=== PATIENT | male | born 1960 | race American Indian/Alaskan Native ===

== ENCOUNTER 2016-10-05 10:12 | Emergency (ER) | payer MEDICARE, MEDICAID ==
[2016-10-05 10:43] VITALS: BMI 57.6
[2016-10-05 11:10] VITALS: TEMP 98.2
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
[2016-10-05 12:31] VITALS: BP 158/76; PULSE 62; RESP 19; O2SAT 98
== END 2016-10-05 12:39 | disposition home or self-care (01) ==
LOC: ED 10:12
DX: Z00.8 Encounter for other general examination (principal)

== ENCOUNTER 2017-09-02 07:31 | Day surgery (SDC) | payer MEDICARE, MEDICAID ==
[2017-09-01 08:42] VITALS: BMI 53.8
[2017-09-02 07:00] LABS: BASO # 0.01 K/mm3 (0.0-2.0); BASO % 0.2 % (0.0-3.0); EOS # 0.2 (0.0-0.7); EOS % 2.9 % (1.5-5.0); GRAN # 2.6 (1.4-6.5); GRAN % 49.4 % (50.0-68.0); HEMOGLOBIN 11.8 g/dL (14.0-18.0); LYMPH % 38.8 % (22.0-35.0); MEAN CELL VOLUME 83.5 fl (80.0-105.0); MEAN CORPUSCULAR HEMOGLOBIN 26.6 pg (25.0-35.0); MEAN CORPUSCULAR HGB CONC 31.9 g/dl (31.0-37.0); MONO # 0.5 (0.1-0.6); MONO % 8.7 % (1.0-6.0); RBC 4.43 10^6/uL (3.5-6.1); RED CELL DISTRIBUTION WIDTH 13.7 % (11.5-14.5); WHITE BLOOD COUNT 5.3 10^3/ul (4.5-11.0)
[2017-09-02 07:10] LABS: CALCIUM 10.3 mg/dL (8.4-10.5)
[2017-09-02 07:22] LABS: INR 1.03 (0.93-1.08); PARTIAL THROMBOPLASTIN TIME 29.5 Seconds (25.1-36.5); PROTHROMBIN TIME 11.9 SECONDS (9.4-12.5)
[2017-09-02 09:06] VITALS: O2SAT 100
[2017-09-02] MEDS ORDERED: Verapamil 0 ML ONE (10:21)
[2017-09-02] MEDS ORDERED: Phenylephrine 10 mg/ml Inj ONE (10:22)
[2017-09-02] MEDS ORDERED: Midazolam 2 MG/2 ML VIAL ONE ×2 (10:22→10:33)
[2017-09-02] MEDS ORDERED: Iohexol 350mgl/ml 50 ML ONE (10:23)
[2017-09-02] MEDS ORDERED: Iodixanol 320 MG/ML 200 ML BOTTLE IV ONE (10:23)
[2017-09-02] MEDS ORDERED: Nitroglycerin 50mg in D5W 0 MG/0 ML BOTTLE IV ONE (10:23)
[2017-09-02] MEDS ORDERED: HEPARIN SODIUM/NS 2,000 ML IV ONE (10:23)
[2017-09-02] MEDS ORDERED: Iodixanol 320 MG/ML 100 ML BOTTLE IV ONE (10:23)
[2017-09-02] MEDS ORDERED: Lidocaine 2% Inj (20ml) ONE (10:24)
[2017-09-02] MEDS ORDERED: DiphenhydrAMINE 50 mg/ml Inj ONE (10:35)
[2017-09-02] MEDS ORDERED: Sodium Chloride 0.9% 1,000 ML IV SCH (11:15)
[2017-09-02 12:58] VITALS: TEMP 97.4
[2017-09-02 15:11] VITALS: BP 156/72; PULSE 52; RESP 16
--- NOTE | 2017-09-02 19:01 | CARD ---
APPROVED REPORT EKG Measurement Heart [id number] <Conclusion> Sinus Bradycardia Low voltage QRS Abnormal ECG
--- NOTE | 2017-09-02 22:22 | CARDCATH ---
PROCEDURE DATE: 09/02/2017 INDICATIONS: Mr. Gimenez is a very pleasant 56-year-old male with history of CVA, CAD, stenting last year who was having recurrent episodes of chest pain. Because of his limitations, patient could not undergo nuclear stress test and underwent a diagnostic cardiac cath at [facility], which showed RCA and LAD in-stent restenosis. He was brought for intervention of the RCA stenosis. PROCEDURES PERFORMED: Diagnostic coronary angiogram, right coronary artery with PTCA and stenting of mid RCA with deployment of 3.5 x 26-mm Resolute drug-eluting stent, post dilatation with a 4.5 noncompliant balloon, regeneration down to 0% with ALONDRA-3 flow in the right artery. Angio-Seal closure device for hemostasis. IMPRESSION: Successful percutaneous transluminal coronary angioplasty and stenting of mid right coronary artery, 75% in-stent restenosis, intravascular ultrasound-guided percutaneous coronary intervention deployment of 3.5 x 26 Resolute drug-eluting stent, post dilatation with a 4.5 noncompliant balloon. RECOMMENDATION: Patient is to be kept on dual-antiplatelet therapy for 1 year, guideline directed therapy for CAD, staged intervention of the LAD in 4 to 6 weeks' time. Chaparro Castillo MD
== END 2017-09-02 16:22 ==
LOC: SDSVAS 07:31 → 2RNO 11:31 → SDSVAS 16:22
PROVIDERS: ATTEND Internal Medicine Interventional Cardiology
DX: I25.10 Atherosclerotic heart disease of native coronary artery without angina pectoris (principal); T82.855A Stenosis of coronary artery stent, initial encounter; Y83.1 Surgical operation with implant of artificial internal device as the cause of abnormal reaction of the patient, or of later complication, without mention of misadventure at the time of the procedure; Z86.73 Personal history of transient ischemic attack (TIA), and cerebral infarction without residual deficits
CPT/HCPCS: 36415; 80048; 85025; 85175; 85610; 85730; 86850; 86900; 92978; 93005; 99152; 99153; C1725 ×2; C1753; C1760; C1769 ×2; C1874; C1887; C2629; C9600; J1200; J1644 ×2; J2250; J3010; J7040 ×2; Q9967

== ENCOUNTER 2017-10-18 08:49 | Day surgery (SDC) | payer MEDICARE, MEDICAID ==
[2017-09-01 08:42] VITALS: BMI 53.8
[2017-10-18 09:29] VITALS: O2SAT 98
[2017-10-18 10:43] LABS: BASO # 0.01 K/mm3 (0.0-2.0); BASO % 0.2 % (0.0-3.0); EOS # 0.1 (0.0-0.7); EOS % 2.5 % (1.5-5.0); GRAN # 2.74 (1.4-6.5); HEMOGLOBIN 12.2 g/dL (14.0-18.0); LYMPH # 1.9 (1.2-3.4); MEAN CORPUSCULAR HEMOGLOBIN 26.5 pg (25.0-35.0); MEAN CORPUSCULAR HGB CONC 32.4 g/dl (31.0-37.0); MEAN PLATELET VOLUME 10.6 fl (7.0-11.0); MONO # 0.4 (0.1-0.6); MONO % 8.3 % (1.0-6.0); RBC 4.6 10^6/uL (3.5-6.1); RED CELL DISTRIBUTION WIDTH 13.7 % (11.5-14.5); WHITE BLOOD COUNT 5.2 10^3/ul (4.5-11.0)
[2017-10-18 10:55] LABS: CALCIUM 9.8 mg/dL (8.4-10.5)
[2017-10-18 11:00] LABS: INR 1.03 (0.93-1.08); PARTIAL THROMBOPLASTIN TIME 25.9 Seconds (25.1-36.5); PROTHROMBIN TIME 11.9 SECONDS (9.4-12.5)
[2017-10-18] MEDS ORDERED: Lidocaine 2% Inj (20ml) ONE (12:54)
[2017-10-18] MEDS ORDERED: Nitroglycerin 50mg in D5W 50 MG/250 ML BOTTLE IV ONE (12:55)
[2017-10-18] MEDS ORDERED: Iodixanol 320 mg/ml 150 ml Bottle IV ONE (12:55)
[2017-10-18] MEDS ORDERED: Iohexol 350mgl/ml 50 ML ONE (12:55)
[2017-10-18] MEDS ORDERED: Midazolam 2 MG/2 ML VIAL ONE ×2 (14:32→14:57)
[2017-10-18] MEDS ORDERED: Verapamil 2 ML ONE (14:40)
[2017-10-18] MEDS ORDERED: DiphenhydrAMINE 50 mg/ml Inj ONE (15:01)
[2017-10-18] MEDS ORDERED: Iodixanol 320 MG/ML 100 ML BOTTLE IV ONE (15:06)
[2017-10-18] MEDS ORDERED: Morphine 4 mg/ml ISec ONE (15:16)
[2017-10-18] MEDS ORDERED: Bacitracin 500 Units/gm Oint Foilpak UD TOP ONE (15:30)
[2017-10-18 17:27] VITALS: TEMP 98.4
[2017-10-18 20:45] VITALS: RESP 19
[2017-10-18 20:46] VITALS: BP 138/76
[2017-10-18] MEDS ORDERED: Bacitracin 500 Units/gm Oint Foilpak UD ONE (22:03)
[2017-10-18 23:44] VITALS: PULSE 76
--- NOTE | 2017-10-19 08:42 | CARDCATH ---
PROCEDURE DATE: 10/18/2017 INDICATIONS: Mr. David Gimenez is a 57-year-old male who has been followed by me in the office for symptoms of unstable angina, dyspnea on exertion and at rest, was brought for the stage intervention of the LAD. PROCEDURE PERFORMED. Stage percutaneous coronary intervention of proximal left anterior descending artery with deployment of 4.0 x 15 mm [place] drug-eluting stent, lesion reduction from 80% down to 0% ALONDRA-3 flow, 6-[place] left radial artery access and wrist band for hemostasis. TECHNICAL PROCEDURE: After obtaining informed consent, patient was brought to the cardiac catheterization in post-absorptive and non-sedated state. The patient was prepped and draped in the usual sterile fashion. A 2% lidocaine was used for infiltration of anesthesia. Using modified Seldinger technique, a 6-[place] sheath was introduced into the left distal radial artery subsequently over exchange length J-wire, 3.5 guiding catheter, used to engage the left coronary systems and angiograms were obtained in different orthogonal views. CORONARY ANATOMY: Left main large-sized vessel bifurcates into left anterior descending and left circumflex coronary artery. LAD has proximal 80% stenosis widely patent. TECHNIQUES OF INTERVENTION: After reviewing the above angiographic findings, it was decided to fix the proximal LAD lesion. [place] wire was negotiated through the obstruction into the distal LAD. Subsequently, the lesion was pre-dilated with 3.0 x 10 mm balloon and subsequently stented with 4.0 x 15 mm balloon to 16 atmospheric pressure. Final angiogram done show lesion reduction to 0% ALONDRA-3 flow. IMPRESSION: Successful percutaneous transluminal coronary angioplasty and stenting of proximal left anterior descending, 80% stenosis, deployment of 4.0 x 15 mm [place] drug-eluting stent,. RECOMMENDATIONS: Patient can be discharged home in 3 hours. Give the patient dual antiplatelet therapy. Follow up with Dr. Castillo office in one week. Chaparro Castillo MD
== END 2017-10-19 00:32 ==
LOC: CATH 08:49 → 2RNO 15:45 → CATH 10-19 00:32
PROVIDERS: ATTEND Internal Medicine Interventional Cardiology
DX: I25.110 Atherosclerotic heart disease of native coronary artery with unstable angina pectoris (principal)
CPT/HCPCS: 36415; 80048; 80061; 82948; 85025; 85175; 85610; 85730; 86850; 86900; 99152; 99153; C1725; C1769 ×2; C1874; C1887; C9600; J1200; J1644 ×2; J2250; J2270; J3010; J7040; Q9967 ×2

== ENCOUNTER 2018-04-20 11:59 | Inpatient (IN) | payer MEDICARE, MEDICAID ==
[2018-04-20 12:11] VITALS: BMI 56.0
--- NOTE | 2018-04-20 12:55 | RAD ---
Date of service: 04/20/2018 HISTORY: chest pain COMPARISON: 06/19/2016 FINDINGS: LUNGS: No active pulmonary disease. PLEURA: No significant pleural effusion identified, no pneumothorax apparent. CARDIOVASCULAR: Mild cardiomegaly OSSEOUS STRUCTURES: No significant abnormalities. VISUALIZED UPPER ABDOMEN: Normal. OTHER FINDINGS: None. IMPRESSION: No active disease.
[2018-04-20 13:14] LABS: BASO # 0.01 K/mm3 (0.0-2.0); BASO % 0.2 % (0.0-3.0); EOS # 0.2 (0.0-0.7); EOS % 3.2 % (1.5-5.0); GRAN # 3.6 (1.4-6.5); GRAN % 59.6 % (50.0-68.0); HEMOGLOBIN 12.2 g/dL (14.0-18.0); LYMPH # 1.6 (1.2-3.4); LYMPH % 25.7 % (22.0-35.0); MEAN CELL VOLUME 79.5 fl (80.0-105.0); MEAN CORPUSCULAR HEMOGLOBIN 25.6 pg (25.0-35.0); MEAN CORPUSCULAR HGB CONC 32.2 g/dl (31.0-37.0); MEAN PLATELET VOLUME 10.2 fl (7.0-11.0); MONO # 0.7 (0.1-0.6); MONO % 11.3 % (1.0-6.0); RBC 4.77 10^6/uL (3.5-6.1); RED CELL DISTRIBUTION WIDTH 14.9 % (11.5-14.5)
--- NOTE | 2018-04-20 13:31 | ED PDOC ---
Arrival/HPI - General Historian: Patient - History of Present Illness Narrative History of Present Illness (Text): 04/20/18 13:27 57yo male morbidly obese male with pmhx of hypertension, Diabetes, CVA (2007), CAD s/p 2stents bib EMS form [facility] for complaint of retrostenal constant chest pain since last night. States headache started this morning. Describes chest pain as sharp, intermittent and radiates to his left arm. Did not take any medication. Denies SOB, diaphoresis, cough, fever, chills, nausea, vomiting, sharp/ripping tearing upper back pain, LE edema, calf pain, any other complaint. <Wilbur Campbell - Last Filed: 04/20/18 18:10> <Eben Guy - Last Filed: 04/25/18 18:43> - General Chief Complaint: Chest Pain Time Seen by Provider: 04/20/18 12:09 Past Medical History - Provider Review Nursing Documentation Reviewed: Yes - Infectious Disease Hx of Infectious Diseases: None - Cardiac Hx Pacemaker: No - Pulmonary Hx Respiratory Disorders: No Hx Tuberculosis: No - Neurological Hx Paralysis: No (R SIDED WEAKNESS) - HEENT Hx HEENT Disorder: Yes Other/Comment: RIGHT EYE CORNEA TRANSPLANT - Renal Hx Renal Disorder: No - Endocrine/Metabolic Hx Endocrine Disorders: Yes Hx Diabetes Mellitus Type 2: Yes - Hematological/Oncological Hx Blood Transfusions: No - Integumentary Hx Dermatological Disorder: No - Musculoskeletal/Rheumatological Hx Musculoskeletal Disorders: No - Gastrointestinal Hx Gastrointestinal Disorders: Yes Hx Gall Bladder Disease: Yes (ACUTE CHOLECYSTITIS) Hx Gastroesophageal Reflux: Yes - Genitourinary/Gynecological Hx Genitourinary Disorders: No Hx Sexually Transmitted Diseases: No - Psychiatric Hx Emotional Abuse: No Hx Physical Abuse: No Hx Substance Use: No - Surgical History Hx Angioplasty: Yes Hx Cardiac Catheterization: Yes Hx Coronary Stent: Yes (X2) Hx Eye Surgery: Yes (RT EYE CORNEA TRANSPLANT) Other/Comment: GASTRIC SLEEVE - Anesthesia Hx Anesthesia Reactions: No Hx Malignant Hyperthermia: No - Suicidal Assessment Feels Threatened In Home Enviroment: No <AdrianHappiness A - Last Filed: 04/20/18 18:10> Family/Social History - Physician Review Nursing Documentation Reviewed: Yes Family/Social History: Unknown Family HX Smoking Status: Never Smoked Hx Alcohol Use: No Hx Substance Use: No <Wilbur Campbell A - Last Filed: 04/20/18 18:10> Allergies/Home Meds <Wilbur Campbell Lia - Last Filed: 04/20/18 18:10> <MalenaEben - Last Filed: 04/25/18 18:43> Allergies/Adverse Reactions: Allergies No Known Allergies Allergy (Verified 04/20/18 12:08) Home Medications: Home Meds Medication Instructions Recorded Confirmed RX: amLODIPine [Norvasc] 10 mg PO DAILY 02/21/14 04/20/18 RX: Docusate [Colace] 200 mg PO HS PRN 06/19/16 04/20/18 RX: Ergocalciferol (Vitamin D2) 50,000 iu PO QWK 06/19/16 04/20/18 [Vitamin D2] RX: Ferrous Sulfate [Feosol] 325 mg PO DAILY 06/19/16 04/20/18 RX: Insulin Glargine, Recombina 30 units SC ACB[facility] 06/19/16 04/20/18 [Lantus] RX: Cyanocobalamin [Vitamin B12 1,000 mcg SL DAILY 12/30/16 04/20/18 1000 mcg Tab] RX: Albuterol Sulfate [Proair Hfa] 1 puff IH Q6 PRN 08/19/17 04/20/18 RX: Aspirin [Ecotrin] 81 mg PO DAILY 08/19/17 04/20/18 RX: Calcium Carbonate/Vitamin D3 2 tab PO TID 08/19/17 04/20/18 [Oyster Shell Calcium-Vit D Tab] RX: Clopidogrel [Plavix] 75 mg PO DAILY 08/19/17 04/20/18 RX: Divalproex [Depakote DR] 1 tab PO BID 08/19/17 04/20/18 RX: Insulin Lispro [Humalog 12 unit SC ACTID 08/19/17 04/20/18 (Insulin Lispro)] RX: Losartan/Hydrochlorothiazide 1 tab PO DAILY 08/19/17 04/20/18 [Losartan-Hctz 100-25 mg Tab] RX: Metoprolol Succinate [Toprol 100 mg PO DAILY 08/19/17 04/20/18 Xl] RX: Multivitamin [Multivitamins] 1 each PO DAILY 08/19/17 04/20/18 RX: Ranitidine HCl 75 mg PO BID 08/19/17 04/20/18 RX: Simvastatin 10 mg PO HS 08/19/17 04/20/18 RX: Furosemide [Lasix] 20 mg PO DAILY 10/14/17 04/20/18 Review of Systems - Physician Review All systems were reviewed & negative as marked: Yes - Review of Systems Constitutional: Normal Eyes: Normal ENT: Normal Respiratory: Normal Cardiovascular: Chest Pain. absent: Palpitations, Edema, Calf Pain Gastrointestinal: Normal Genitourinary Male: Normal Musculoskeletal: Normal Skin: Normal Neurological: Headache. absent: Dizziness, Focal Weakness, Gait Changes, Speech Changes Endocrine: Normal Hemo/Lymphatic: Normal Psychiatric: Normal <Diru,Happiness A - Last Filed: 04/20/18 18:10> Physical Exam Vital Signs Reviewed: Yes Vital Signs Temp Pulse Resp BP Pulse Ox 04/20/18 12:13 98.2 F 92 H 18 150/64 100 Temperature: Afebrile Blood Pressure: Normal Pulse: Regular Respiratory Rate: Normal Appearance: Positive for: Well-Appearing, Non-Toxic, Comfortable Pain Distress: None Mental Status: Positive for: Alert and Oriented X 3 Finger Stick Blood Glucose: 117 - Systems Exam Head: Present: Atraumatic, Normocephalic Pupils: Present: PERRL Extroacular Muscles: Present: EOMI Conjunctiva: Present: Normal Mouth: Present: Moist Mucous Membranes Neck: Present: Normal Range of Motion Respiratory/Chest: Present: Clear to Auscultation, Good Air Exchange. No: Respiratory Distress, Accessory Muscle Use, Wheezes, Decreased Breath Sounds, Rales, Retracting, Rhonchi Cardiovascular: Present: Regular Rate and Rhythm, Normal S1, S2. No: Murmurs Abdomen: No: Tenderness, Distention, Peritoneal Signs Back: Present: Normal Inspection Upper Extremity: Present: Normal Inspection. No: Cyanosis, Edema Lower Extremity: Present: Normal Inspection. No: Edema Neurological: Present: GCS=15, CN II-XII Intact, Speech Normal, Normal Sensory Function, Normal Cerebellar Funct, Memory Normal. No: Motor Func Grossly Intact (Decreased on the right side) Skin: Present: Warm, Dry, Normal Color. No: Rashes Psychiatric: Present: Alert, Oriented x 3, Normal Insight, Normal Concentration <Diru,Happiness A - Last Filed: 04/20/18 18:10> Vital Signs Temp Pulse Resp BP Pulse Ox 04/20/18 16:07 88 18 141/62 99 04/20/18 13:39 98 F 93 H 19 100 04/20/18 12:13 98.2 F 92 H 18 150/64 100 <Eben Guy - Last Filed: 04/25/18 18:43> Medical Decision Making ED Course and Treatment: 04/20/18 18:10 57yo male in ED complaining of chest pain and headache. Labs car iso BNP CXR EKG ASA, Tylenol Pt was neurologically intact in ED. Morbidly obese. First CE was negative. EKG sinus rhythm with 1st AV block. LAD. 94bpm. N-STEMI CXR NAD Pt headache improved with Tylenol in ED He have extensive cardiac risk factor. He was admitted for further evaluation. Case was DW Dr. Sweet and she accepted pt to her service. - Lab Interpretations Lab Results: 04/20/18 13:00 Lab Results 04/20/18 13:00: WBC 6.0, RBC 4.77, Hgb 12.2 L, Hct 37.9 L, MCV 79.5 L, MCH 25.6, MCHC 32.2, RDW 14.9 H, Plt Count 239, MPV 10.2, Gran % 59.6, Lymph % (Auto) 25.7, Moffat % (Auto) 11.3 H, Eos % (Auto) 3.2, Baso % (Auto) 0.2, Gran # 3.60, Lymph # (Auto) 1.6, Moffat # (Auto) 0.7 H, Eos # (Auto) 0.2, Baso # (Auto) 0.01 04/20/18 12:10: POC Glucose (mg/dL) 117 H - RAD Interpretation Radiology Orders: 04/20/18 12:21 CHEST PORTABLE [RAD] Stat <Diru,Happiness A - Last Filed: 04/20/18 18:10> - Lab Interpretations Lab Results: 04/20/18 13:00 04/20/18 14:13 Lab Results 04/20/18 14:13: Sodium 139, Potassium 3.9, Chloride 102, Carbon Dioxide 30, Anion Gap 11, BUN 20, Creatinine 1.6 H, Est GFR ( Amer) 54, Est GFR (Non- Af Amer) 45, Random Glucose 108, Calcium 9.8, Magnesium 1.8, Total Bilirubin 0.4, AST 30, ALT 29, Alkaline Phosphatase 104, Lactate Dehydrogenase 549, Total Creatine Kinase 207, Troponin I 0.01, NT-Pro-B Natriuret Pep 81, Total Protein 8.1, Albumin 4.0, Globulin 4.1, Albumin/Globulin Ratio 1.0 L 04/20/18 14:13: PT 12.6 H, INR 1.09, APTT 27.4 04/20/18 14:12: Influenza Typ A,B (EIA) Negative for flu a/b 04/20/18 14:08: Urine Color Yellow, Urine Appearance Clear, Urine pH 6.0, Ur Specific [place] 1.010, Urine Protein Negative, Urine Glucose (UA) Negative, Urine Ketones Negative, Urine Blood Negative, Urine Nitrate Negative, Urine Bilirubin Negative, Urine Urobilinogen 0.2, Ur Leukocyte Esterase Negative 04/20/18 13:00: WBC 6.0, RBC 4.77, Hgb 12.2 L, Hct 37.9 L, MCV 79.5 L, MCH 25.6, MCHC 32.2, RDW 14.9 H, Plt Count 239, MPV 10.2, Gran % 59.6, Lymph % (Auto) 25.7, Moffat % (Auto) 11.3 H, Eos % (Auto) 3.2, Baso % (Auto) 0.2, Gran # 3.60, Lymph # (Auto) 1.6, Moffat # (Auto) 0.7 H, Eos # (Auto) 0.2, Baso # (Auto) 0.01 04/20/18 12:10: POC Glucose (mg/dL) 117 H - RAD Interpretation Radiology Orders: 04/20/18 12:21 CHEST PORTABLE [RAD] Stat - Medication Orders Current Medication Orders: Discontinued Medications Acetaminophen (Tylenol 325mg Tab) 650 mg PO STAT STA Stop: 04/20/18 13:27 Last Admin: 04/20/18 14:16 Dose: 650 mg MAR Pain/Vitals Document 04/20/18 14:16 LA (Rec: 04/20/18 14:17 LEONARDA [id number]) Pain Reassessment Is This A Pain ReAssessment? No Sleep Is patient sleeping during reassessment? No Presence of Pain Presence of Pain Yes Pain Scale Used Protocol: PSCALES Pain Scale Used Numeric Re-Assess: MAR Pain/Vitals Document 04/20/18 15:16 LA (Rec: 04/20/18 15:40 LA [id number]) Pain Reassessment Is This A Pain ReAssessment? Yes Sleep Is patient sleeping during reassessment? Yes Albuterol Sulfate (Albuterol 0.5% Inhal Jenny (2.5 Mg/0.5 Ml) Ud) 2.5 mg IH [id number] PRN PRN Reason: Shortness of Breath Amlodipine Besylate (Norvasc) 10 mg PO DAILY [facility] Last Admin: 04/22/18 09:11 Dose: 10 mg MAR Blood Pressure Document 04/22/18 09:11 RDS (Rec: 04/22/18 09:12 RDS [id number]) Blood Pressure Blood Pressure (100/60-150/90) 125/63 Aspirin (Aspirin) 325 mg PO STAT STA Stop: 04/20/18 14:57 Last Admin: 04/20/18 15:40 Dose: 325 mg Aspirin (Ecotrin) 81 mg PO DAILY [facility] Last Admin: 04/22/18 09:11 Dose: 81 mg Atorvastatin Calcium (Lipitor) 10 mg PO HS [facility] Last Admin: 04/21/18 22:34 Dose: 10 mg Calcium/Vitamin D (Oscal-D 250 Mg-125 Units Tab) 2 tab PO TID [facility] Last Admin: 04/22/18 15:31 Dose: 2 tab Clopidogrel Bisulfate (Plavix) 75 mg PO DAILY [facility] Last Admin: 04/22/18 09:12 Dose: 75 mg Divalproex Sodium (Depakote Dr (*Bid*)) 1 mg PO BID [facility]; Protocol Last Admin: 04/21/18 11:12 Dose: Not Given Non-Admin Reason: order has to be edited Divalproex Sodium (Dephortensiate (*Bid*)) 250 mg PO BID [facility]; Protocol Divalproex Sodium (Depakote Dr (*Bid*)) 250 mg PO ONCE ONE; Protocol Stop: 04/21/18 11:16 Last Admin: 04/21/18 12:00 Dose: 250 mg Behavioural Document 04/21/18 12:00 RDS (Rec: 04/21/18 12:00 RDS [id number]) Nonmedicinal Nonmedicinal Interventions Therapeutic Communication Re-Assess: Reassess Psych Meds Document 04/21/18 13:00 RDS (Rec: 04/21/18 13:58 RDS [id number]) Reassess Psych Med Effective Docusate Sodium (Colace) 200 mg PO HS PRN PRN Reason: Constipation Doxycycline Hyclate (Doryx) 100 mg PO Q12 [facility]; Protocol Stop: 04/27/18 05:00 Last Admin: 04/22/18 09:12 Dose: 100 mg Ergocalciferol (Drisdol 50,000 Intl Units Cap) 1 cap PO QWK [facility] Ergocalciferol (Drisdol 50,000 Intl Units Cap) 1 cap PO QWK [facility] Last Admin: 04/22/18 09:51 Dose: 1 cap Famotidine (Pepcid) 10 mg PO BID [facility] Last Admin: 04/22/18 09:11 Dose: 10 mg Famotidine (Pepcid) 10 mg PO .EXTRA DOSE ONE Stop: 04/20/18 21:16 Last Admin: 04/20/18 21:32 Dose: 10 mg Ferrous Sulfate (Feosol) 324 mg PO DAILY [facility] Last Admin: 04/22/18 09:12 Dose: 324 mg Furosemide (Lasix) 20 mg PO DAILY [facility] Last Admin: 04/22/18 09:12 Dose: 20 mg MAR Blood Pressure Document 04/22/18 09:12 RDS (Rec: 04/22/18 09:12 RDS [id number]) Blood Pressure Blood Pressure (100/60-150/90) 125/63 Guaifenesin (Robitussin) 100 mg PO STAT STA Stop: 04/21/18 22:29 Last Admin: 04/21/18 22:34 Dose: 100 mg Hydrochlorothiazide (Hydrodiuril) 25 mg PO DAILY [facility] Last Admin: 04/22/18 09:10 Dose: 25 mg Influenza Virus Vaccine (Flucelvax Quad [id number] Syr) 60 mcg IM .ONCE ONE Stop: 04/20/18 22:25 Last Admin: 04/20/18 22:44 Dose: Not Given Non-Admin Reason: Patient Refused Immunization Registry Document 04/20/18 22:44 KTR (Rec: 04/20/18 22:44 KTR [id number]) [facility]-Date provided 04/20/18 Insulin Detemir (Levemir) 10 unit SC [facility] Insulin Detemir (Levemir) 20 unit SC [facility] Last Admin: 04/22/18 08:42 Dose: 20 units MAR Blood Glucose Document 04/22/18 08:42 RDS (Rec: 04/22/18 08:42 [id number]) Blood Glucose Finger Stick Blood Glucose (70-120) 277 Subcutaneous Administrations Document 04/22/18 08:42 RDS (Rec: 04/22/18 08:42 [facility]) Charges for Administration # of Subcutaneous Administrations 1 Insulin Human Lispro (Humalog) 12 units SC [facility] Last Admin: 04/22/18 12:15 Dose: 12 units MAR Blood Glucose Document 04/22/18 12:15 RDS (Rec: 04/22/18 12:15 [facility]) Blood Glucose Finger Stick Blood Glucose (70-120) 308 Subcutaneous Administrations Document 04/22/18 12:15 RDS (Rec: 04/22/18 12:15 [facility] Charges for Administration # of Subcutaneous Administrations 1 Insulin Human Regular (Humulin R Low) 0 units SC [facility]; Protocol Last Admin: 04/22/18 12:15 Dose: 4 units MAR Blood Glucose Document 04/22/18 12:15 RDS (Rec: 04/22/18 12:15 [facility]) Blood Glucose Finger Stick Blood Glucose (70-120) 308 Subcutaneous Administrations Document 04/22/18 12:15 RDS (Rec: 04/22/18 12:15 [id number]) Charges for Administration # of Subcutaneous Administrations 1 Losartan Potassium (Cozaar) 100 mg PO DAILY [facility] Losartan Potassium (Cozaar) 100 mg PO DAILY [facility] Last Admin: 04/22/18 09:11 Dose: 100 mg Metoprolol Succinate (Toprol Xl) 100 mg PO DAILY [facility] Last Admin: 04/22/18 09:12 Dose: 100 mg MAR Pulse and Blood Pressure Document 04/22/18 09:12 RDS (Rec: 04/22/18 09:12 [id number] Pulse Pulse Rate (60-90) 83 Blood Pressure Blood Pressure (100/60-150/90) 125/63 Multivitamins (Thera Tab) 1 tab PO DAILY [facility] Last Admin: 04/22/18 09:12 Dose: 1 tab Pneumococcal Polyvalent Vaccine (Pneumovax 23 Vaccine) 0.5 ml IM .ONCE ONE Stop: 04/20/18 22:25 Last Admin: 04/20/18 22:45 Dose: Not Given Non-Admin Reason: Patient Refused Immunization Registry Document 04/20/18 22:45 KTR (Rec: 04/20/18 22:45 KTR [id number]) [facility]-Date provided 04/20/18 Prednisone (Prednisone Tab) 20 mg PO DAILY [facility] Last Admin: 04/22/18 09:11 Dose: 20 mg <Eben Guy - Last Filed: 04/25/18 18:43> - PA / OCEANOGRAPHER GEOLOGICAL / Resident Statement / has reviewed & agrees with the documentation as recorded. <Eben Guy - Last Filed: 04/25/18 18:43> Disposition/Present on Arrival - Present on Arrival Any Indicators Present on Arrival: No History of DVT/PE: No History of Uncontrolled Diabetes: No Urinary Catheter: No History of Decub. Ulcer: No History Surgical Site Infection Following: None - Disposition Have Diagnosis and Disposition been Completed?: Yes Disposition Time: 14:30 Patient Plan: Admission <Wilbur Campbell - Last Filed: 04/20/18 18:10> <Eben Guy - Last Filed: 04/25/18 18:43> - Disposition Diagnosis: Chest pain, Renal insufficiency Disposition: HOSPITALIZED Condition: STABLE
[2018-04-20 14:23] LABS: URINE BILIRUBIN NEGATIVE (NEGATIVE); URINE BLOOD NEGATIVE (NEGATIVE); URINE GLUCOSE (UA) NEGATIVE (NEGATIVE); URINE LEUKOCYTE ESTERASE NEGATIVE Leu/uL (NEGATIVE); URINE PROTEIN NEGATIVE mg/dL (<30 mg/dL); URINE UROBILINOGEN 0.2 E.U./dL (<1 E.U./dL)
[2018-04-20 14:24] LABS: URINE APPEARANCE CLEAR (CLEAR); URINE COLOR YELLOW (YELLOW)
[2018-04-20 14:38] LABS: INR 1.09; PARTIAL THROMBOPLASTIN TIME 27.4 Seconds (25.1-36.5); PROTHROMBIN TIME 12.6 SECONDS (9.4-12.5)
[2018-04-20 14:42] LABS: CALCIUM 9.8 mg/dL (8.4-10.5)
[2018-04-20 15:07] LABS: TROPONIN I 0.01 ng/mL
--- NOTE | 2018-04-20 17:50 | CARD ---
APPROVED REPORT Date of service: 04/20/2018 EKG Measurement Heart [id number] <Conclusion> Sinus rhythm with 1st degree AV block Left axis deviation Abnormal ECG
[2018-04-20] MEDS ORDERED: Albuterol HFA 90 mcg/actuation (8 g) IH PRN (20:31)
[2018-04-20] MEDS ORDERED: RANITIDINE HCL 75 MG PO SCH (20:45)
[2018-04-20] MEDS ORDERED: Albuterol 0.5% Inhal Sol (2.5 mg/0.5 ml) UD IH PRN (20:55)
[2018-04-20] MEDS: Insulin Reg-LOW-Coverage SC SCH (21:27)
[2018-04-20] MEDS: Divalproex 250 mg DR (BID formulation) PO SCH (21:32)
[2018-04-20] MEDS: Insulin Detemir 100 units/ml Vial (Levemir) SC SCH (21:32)
[2018-04-20] MEDS ORDERED: Insulin Detemir 100 units/ml Vial (Levemir) SC SCH (22:00)
[2018-04-20] MEDS ORDERED: Non Formulary Medication (Simvastatin [Simvastatin] 10 MG) PO SCH (22:00)
[2018-04-20] MEDS ORDERED: Pneumococcal 23-Valent Vaccine IM ONE (22:24)
[2018-04-20] MEDS ORDERED: Influenza Vaccine 60 mcg/0.5 mL SYR (4YR UP) IM ONE (22:24)
[2018-04-21 03:23] LABS: TROPONIN I < 0.01 ng/mL
[2018-04-21 06:52] LABS: IRON 43 ug/dL (45-180)
[2018-04-21 06:53] LABS: HEMOGLOBIN 11.6 g/dL (14.0-18.0); MEAN CELL VOLUME 80.3 fl (80.0-105.0); MEAN CORPUSCULAR HEMOGLOBIN 25.1 pg (25.0-35.0); MEAN CORPUSCULAR HGB CONC 31.3 g/dl (31.0-37.0); MEAN PLATELET VOLUME 10.5 fl (7.0-11.0); RBC 4.62 10^6/uL (3.5-6.1); RED CELL DISTRIBUTION WIDTH 14.8 % (11.5-14.5); WHITE BLOOD COUNT 4.5 10^3/ul (4.5-11.0)
--- NOTE | 2018-04-21 07:14 | HP ---
This is a 57-year-old male. Patient was seen and examined on 04/20/2018. CHIEF COMPLAINT: Chest pain. HISTORY OF PRESENT ILLNESS: Mr. David Gimenez is a 57-year-old obese male with past medical history of hypertension, diabetes mellitus, CVA, coronary artery disease, SP two cardiac stents, resident of [facility], was complaining there for retrosternal, constant chest pain since last night and nursing staff called me, then I told them to transfer patient to [facility], states headache also, described chest pain as sharp, intermittent and radiates to his left arm, did not take any medication. Denies diaphoresis, coughing, fever, chills. No nausea, vomiting, diarrhea. No hematuria. No hematochezia. No calf pain. PAST MEDICAL HISTORY: As above. Right-sided weakness due to stroke, right eye cornea transplant, diabetes mellitus type 2, not very well controlled, history of acute cholecystitis, GERD, dyspepsia, obesity, angioplasty, coronary artery stents x2, gastric sleeve. FAMILY HISTORY: Father and mother, noncontributory. HABITS: Never smoked. No drugs. No ethanol. ALLERGIES: PATIENT IS NOT ALLERGIC WITH ANY MEDICATIONS. HOME MEDICATIONS: Reviewed by me, amlodipine, docusate, ergocalciferol, insulin, B12, aspirin, Plavix, Depakote, losartan HCTZ, metoprolol, multivitamins, ranitidine, furosemide. REVIEW OF SYSTEMS: Has chest pain. No palpitation. No edema of the calf. No nausea, vomiting or diarrhea. No fever. No chills. Has headache, but no dizziness, focal weakness, gait changes or speech changes. PHYSICAL EXAMINATION: VITAL SIGNS: Temperature 98.2, pulse 92, respiratory rate 18, blood pressure 120/80 , pulse oximetry 100%. HEENT: Head: Normocephalic, atraumatic. Eyes: PERRLA. Extraocular muscles intact. Conjunctivae clear. Nose patent. Mucous membrane moist. NECK: Supple. No carotid bruit, JVD or thyromegaly. CHEST: Bilaterally symmetrical. HEART: S1 and S2 positive. LUNGS: Clear to auscultation. ABDOMEN: Soft. Bowel sounds present. No organomegaly. EXTREMITIES: No edema. No cyanosis. NEUROLOGIC: Patient is awake and alert. Moving all four extremities. No focal deficit right now. LABORATORY DATA: White blood cell 6, hemoglobin 12.2, hematocrit 37.9, platelets 239. Sodium 139, potassium 3.9, BUN 20, creatinine 1.6. Glucose 185. Troponin 0.01 x2. We will do three times. ASSESSMENT AND PLAN: Mr. David Gimenez is a 57-year-old male with anemia, high creatinine, diabetes mellitus, came with chest pain, he has many comorbid factors for heart disease, history of coronary artery disease, status post cardiac stenting, hypertension, diabetes mellitus, cerebrovascular accident, noncompliant with food, history of gastric sleeve, history of acute cholecystitis, right eye corneal transplant. We admitted the patient. Cardiology consult called with Dr. Becker. Gastrointestinal and deep venous thrombosis prophylaxes given. Reorder all medications. We will follow up. Leah Sweet MD MTDSilvia
[2018-04-21 07:21] LABS: BLOOD UREA NITROGEN 19 mg/dL (7-21); CALCIUM 9.4 mg/dL (8.4-10.5); GFR NON-AFRICAN AMERICAN 45; HDL CHOLESTEROL 27 mg/dL (29-60)
[2018-04-21 07:28] LABS: % IRON SATURATION 17 % (20-55); TOTAL IRON BINDING CAPACITY 246 ug/dL (261-462)
[2018-04-21] MEDS ORDERED: INSULIN LISPRO 12 UNIT SC SCH (07:30)
[2018-04-21 07:31] LABS: LDL CHOLESTEROL 67 mg/dL (0-129)
[2018-04-21] MEDS: Insulin Lispro 1 UNITS/0.01 ML SC SCH ×3 (08:33→17:39)
[2018-04-21] MEDS: Insulin Reg-LOW-Coverage SC SCH ×4 (08:34→22:35)
[2018-04-21] MEDS: Insulin Detemir 100 units/ml Vial (Levemir) SC SCH ×2 (08:34→22:34)
--- NOTE | 2018-04-21 09:16 | CP.PCM.CON ---
History of Present Illness - History of Present Illness History of Present Illness: Cardiology Consult Note Scot Garrett, PGY1 note for Dr. Castillo This is a 57 year old male with PMH of DM, HTN, CVA, JAYLON of proximal LAD on 10/18/17 and JAYLON of mid RCA on 09/02/17 presenting to hospital from care home for two day history of chest pain that occurs during the night while in bed. Pain is described as sharp, intermittant, radiating to both arms, worse with positional movement and rated 6/10. He states he has had similar chest pain in past. At this time, he states his symptoms have resolved and denies CP, SOB, headaches, fevers, chills, nausea, vomiting, numbness, tingling, swelling and urinary complaints. 12 point ROS noted here, otherwise unremarkable. In ED, troponin was 0.01, BNP was 81, and EKG showed sinus rhythm at 94bpm. Patient given ASA and tylenol with improvement in symptoms. PMH: as above SH: denies smoking, drinking and drugs. Lives at [facility] FH: [place] All: NKDA Past Patient History - Infectious Disease Hx of Infectious Diseases: None - Past Medical History & Family History Past Medical History?: Yes - Past Social History Smoking Status: Never Smoked - CARDIAC Hx Cardiac Disorders: Yes (cad, angioplasty) Hx Hypercholesterolemia: Yes Hx Hypertension: Yes Hx Pacemaker: No Hx Peripheral Vascular Disease: Yes Other/Comment: atherectomy 2014 - PULMONARY Hx Respiratory Disorders: No Hx Tuberculosis: No - NEUROLOGICAL HX Cerebrovascular Accident: Yes (2006 r side paralysis) Hx Seizures: (pt denies seizures) - HEENT Hx HEENT Problems: Yes Other/Comment: RIGHT EYE [employer] 1984 - RENAL Hx Chronic Kidney Disease: No - ENDOCRINE/METABOLIC Hx Endocrine Disorders: Yes Hx Diabetes Mellitus Type 2: Yes - HEMATOLOGICAL/ONCOLOGICAL Hx Blood Disorders: No Hx Cancer: No Hx Human Immunodeficiency Virus (HIV): No - INTEGUMENTARY Hx Dermatological Problems: No - MUSCULOSKELETAL/RHEUMATOLOGICAL Hx Falls: Yes (past) - GASTROINTESTINAL Hx Gastrointestinal Disorders: Yes (colon polyps, obese) Hx Gall Bladder Disease: Yes (ACUTE CHOLECYSTITIS) Hx Gastroesophageal Reflux: Yes Hx Ulcer: Yes - GENITOURINARY/GYNECOLOGICAL Hx Genitourinary Disorders: No Hx Sexually Transmitted Disorders: No - PSYCHIATRIC Hx Substance Use: No - SURGICAL HISTORY Hx Surgeries: Yes Hx Cardiac Catheterization: Yes Hx Coronary Stent: Yes (X2, ptca last was 08/2017) Other/Comment: GASTRIC SLEEVE - ANESTHESIA Hx Anesthesia Reactions: No Hx Malignant Hyperthermia: No Meds Allergies/Adverse Reactions: Allergies Allergy/AdvReac Type Severity Reaction Status Date / Time No Known Allergies Allergy Verified 04/20/18 12:08 - Medications Medications: Current Medications Albuterol Sulfate (Albuterol 0.5% Inhal Jenny (2.5 Mg/0.5 Ml) Ud) 2.5 mg IH [id number] PRN PRN Reason: Shortness of Breath Amlodipine Besylate (Norvasc) 10 mg PO DAILY [facility] Aspirin (Ecotrin) 81 mg PO DAILY [facility] Atorvastatin Calcium (Lipitor) 10 mg PO HS [facility] Last Admin: 04/20/18 21:32 Dose: 10 mg Calcium/Vitamin D (Oscal-D 250 Mg-125 Units Tab) 2 tab PO TID [facility] Clopidogrel Bisulfate (Plavix) 75 mg PO DAILY [facility] Divalproex Sodium (Depakote Dr (*Bid*)) 1 mg PO BID [facility]; Protocol Last Admin: 04/20/18 21:32 Dose: 1 mg Docusate Sodium (Colace) 200 mg PO HS PRN PRN Reason: Constipation Ergocalciferol (Drisdol 50,000 Intl Units Cap) 1 cap PO QWK [facility] Famotidine (Pepcid) 10 mg PO BID [facility] Ferrous Sulfate (Feosol) 324 mg PO DAILY [facility] Furosemide (Lasix) 20 mg PO DAILY [facility] Hydrochlorothiazide (Hydrodiuril) 25 mg PO DAILY [facility] Insulin Detemir (Levemir) 20 unit SC ACBHS [facility] Last Admin: 04/21/18 08:34 Dose: 20 units Insulin Human Lispro (Humalog) 12 units SC ACTID [facility] Last Admin: 04/21/18 08:33 Dose: 12 units Insulin Human Regular (Humulin R Low) 0 units SC ACHS [facility]; Protocol Last Admin: 04/21/18 08:34 Dose: 2 units Losartan Potassium (Cozaar) 100 mg PO DAILY [facility] Metoprolol Succinate (Toprol Xl) 100 mg PO DAILY [facility] Multivitamins (Thera Tab) 1 tab PO DAILY [facility] Physical Exam - Constitutional Appears: No Acute Distress Additional comments: morbid obesity - Head Exam Head Exam: ATRAUMATIC - Eye Exam Eye Exam: EOMI Pupil Exam: PERRL - ENT Exam ENT Exam: Mucous Membranes Moist - Respiratory Exam Respiratory Exam: Clear to Auscultation Bilateral. absent: Respiratory Distress - Cardiovascular Exam Cardiovascular Exam: REGULAR RHYTHM, +S1, +S2 - GI/Abdominal Exam GI & Abdominal Exam: Normal Bowel Sounds. absent: Distended, Firm - Extremities Exam Extremities exam: Positive for: normal inspection. Negative for: calf tenderness - Neurological Exam Neurological exam: Alert, Oriented x3 - Skin Skin Exam: Normal Color, Warm Results - Vital Signs Recent Vital Signs: Last Vital Signs Temp 99 F 04/21/18 06:00 Pulse 109 H 04/21/18 06:00 Resp 20 04/21/18 06:00 BP 108/68 04/21/18 06:00 Pulse Ox 94 L 04/21/18 06:00 - Labs Result Diagrams: 04/21/18 05:45 04/21/18 05:45 Labs: Laboratory Results - last 24 hr 04/20/18 04/20/18 04/20/18 12:10 13:00 14:08 WBC 6.0 RBC 4.77 Hgb 12.2 L Hct 37.9 L MCV 79.5 L MCH 25.6 MCHC 32.2 RDW 14.9 H Plt Count 239 MPV 10.2 Gran % 59.6 Lymph % (Auto) 25.7 [place] % (Auto) 11.3 H Eos % (Auto) 3.2 Baso % (Auto) 0.2 Gran # 3.60 Lymph # (Auto) 1.6 [place] # (Auto) 0.7 H Eos # (Auto) 0.2 Baso # (Auto) 0.01 PT INR APTT Sodium Potassium Chloride Carbon Dioxide Anion Gap BUN Creatinine Est GFR ( Amer) Est GFR (Non-Af Amer) POC Glucose (mg/dL) 117 H Random Glucose Calcium Magnesium Iron TIBC % Saturation Total Bilirubin AST ALT Alkaline Phosphatase Lactate Dehydrogenase Total Creatine Kinase CK-MB (CK-2) CK-MB (CK-2) % Troponin I NT-Pro-B Natriuret Pep Total Protein Albumin Globulin Albumin/Globulin Ratio Triglycerides Cholesterol LDL Cholesterol Direct HDL Cholesterol TSH 3rd Generation Urine Color Yellow Urine Appearance Clear Urine pH 6.0 Ur Specific [place] 1.010 Urine Protein Negative Urine Glucose (UA) Negative Urine Ketones Negative Urine Blood Negative Urine Nitrate Negative Urine Bilirubin Negative Urine Urobilinogen 0.2 Ur Leukocyte Esterase Negative Influenza Typ A,B (EIA) 04/20/18 04/20/18 04/20/18 14:12 14:13 14:13 WBC RBC Hgb Hct MCV MCH MCHC RDW Plt Count MPV Gran % Lymph % (Auto) [place] % (Auto) Eos % (Auto) Baso % (Auto) Gran # Lymph # (Auto) [place] # (Auto) Eos # (Auto) Baso # (Auto) PT 12.6 H INR 1.09 APTT 27.4 Sodium 139 Potassium 3.9 Chloride 102 Carbon Dioxide 30 Anion Gap 11 BUN 20 Creatinine 1.6 H Est GFR ( Amer) 54 Est GFR (Non-Af Amer) 45 POC Glucose (mg/dL) Random Glucose 108 Calcium 9.8 Magnesium 1.8 Iron TIBC % Saturation Total Bilirubin 0.4 AST 30 ALT 29 Alkaline Phosphatase 104 Lactate Dehydrogenase 549 Total Creatine Kinase 207 CK-MB (CK-2) CK-MB (CK-2) % Troponin I 0.01 NT-Pro-B Natriuret Pep 81 Total Protein 8.1 Albumin 4.0 Globulin 4.1 Albumin/Globulin Ratio 1.0 L Triglycerides Cholesterol LDL Cholesterol Direct HDL Cholesterol TSH 3rd Generation Urine Color Urine Appearance Urine pH Ur Specific [place] Urine Protein Urine Glucose (UA) Urine Ketones Urine Blood Urine Nitrate Urine Bilirubin Urine Urobilinogen Ur Leukocyte Esterase Influenza Typ A,B (EIA) Negative for flu a/b 04/20/18 04/20/18 04/21/18 20:05 21:07 02:35 WBC RBC Hgb Hct MCV MCH MCHC RDW Plt Count MPV Gran % Lymph % (Auto) [place] % (Auto) Eos % (Auto) Baso % (Auto) Gran # Lymph # (Auto) [place] # (Auto) Eos # (Auto) Baso # (Auto) PT INR APTT Sodium Potassium Chloride Carbon Dioxide Anion Gap BUN Creatinine Est GFR ( Amer) Est GFR (Non-Af Amer) POC Glucose (mg/dL) 185 H Random Glucose Calcium Magnesium Iron TIBC % Saturation Total Bilirubin AST ALT Alkaline Phosphatase Lactate Dehydrogenase 429 Total Creatine Kinase 243 H CK-MB (CK-2) 1.0 CK-MB (CK-2) % Cancelled Troponin I < 0.01 < 0.01 NT-Pro-B Natriuret Pep Total Protein Albumin Globulin Albumin/Globulin Ratio Triglycerides Cholesterol LDL Cholesterol Direct HDL Cholesterol TSH 3rd Generation Urine Color Urine Appearance Urine pH Ur Specific [place] Urine Protein Urine Glucose (UA) Urine Ketones Urine Blood Urine Nitrate Urine Bilirubin Urine Urobilinogen Ur Leukocyte Esterase Influenza Typ A,B (EIA) 04/21/18 04/21/18 04/21/18 05:45 05:45 05:45 WBC 4.5 D RBC 4.62 Hgb 11.6 L Hct 37.1 L MCV 80.3 MCH 25.1 MCHC 31.3 RDW 14.8 H Plt Count 216 MPV 10.5 Gran % Lymph % (Auto) [place] % (Auto) Eos % (Auto) Baso % (Auto) Gran # Lymph # (Auto) [place] # (Auto) Eos # (Auto) Baso # (Auto) PT INR APTT Sodium 137 Potassium 4.0 Chloride 102 Carbon Dioxide 26 Anion Gap 12 BUN 19 Creatinine 1.6 H Est GFR ( Amer) 54 Est GFR (Non-Af Amer) 45 POC Glucose (mg/dL) Random Glucose 201 H Calcium 9.4 Magnesium Iron 43 L TIBC 246 L % Saturation 17 L Total Bilirubin AST ALT Alkaline Phosphatase Lactate Dehydrogenase Total Creatine Kinase CK-MB (CK-2) CK-MB (CK-2) % Troponin I NT-Pro-B Natriuret Pep Total Protein Albumin Globulin Albumin/Globulin Ratio Triglycerides 119 Cholesterol 133 LDL Cholesterol Direct 67 HDL Cholesterol 27 L TSH 3rd Generation Urine Color Urine Appearance Urine pH Ur Specific [place] Urine Protein Urine Glucose (UA) Urine Ketones Urine Blood Urine Nitrate Urine Bilirubin Urine Urobilinogen Ur Leukocyte Esterase Influenza Typ A,B (EIA) 04/21/18 04/21/18 05:45 07:37 WBC RBC Hgb Hct MCV MCH MCHC RDW Plt Count MPV Gran % Lymph % (Auto) [place] % (Auto) Eos % (Auto) Baso % (Auto) Gran # Lymph # (Auto) [place] # (Auto) Eos # (Auto) Baso # (Auto) PT INR APTT Sodium Potassium Chloride Carbon Dioxide Anion Gap BUN Creatinine Est GFR ( Amer) Est GFR (Non-Af Amer) POC Glucose (mg/dL) 205 H Random Glucose Calcium Magnesium Iron TIBC % Saturation Total Bilirubin AST ALT Alkaline Phosphatase Lactate Dehydrogenase Total Creatine Kinase CK-MB (CK-2) CK-MB (CK-2) % Troponin I NT-Pro-B Natriuret Pep Total Protein Albumin Globulin Albumin/Globulin Ratio Triglycerides Cholesterol LDL Cholesterol Direct HDL Cholesterol TSH 3rd Generation 2.94 Urine Color Urine Appearance Urine pH Ur Specific [place] Urine Protein Urine Glucose (UA) Urine Ketones Urine Blood Urine Nitrate Urine Bilirubin Urine Urobilinogen Ur Leukocyte Esterase Influenza Typ A,B (EIA) Assessment & Plan - Assessment and Plan (Free Text) Assessment: This is a 57 year old male with PMH of DM, HTN, CVA, and 2 JAYLON presenting to hospital from care home for two day history of chest pain that occurs during the night while in bed. Plan: Chest pain -troponins are negative x3 -initial EKG showed sinus rhythm at 94bpm without ST changes -CXR showed no acute changes -echo pending -JAYLON of proximal LAD on 10/18/17 and JAYLON of mid RCA on 09/02/17 -continue cozaar, HCTZ, lasix, norvasc, ASA, lipitor, plavix Case discussed with attending, further recommendations per Dr. Castillo
[2018-04-21] MEDS ORDERED: Non Formulary Medication (Multivitamin [Multivitamins] 1 EACH) PO SCH (10:00)
[2018-04-21] MEDS ORDERED: Non Formulary Medication (Ferrous Sulfate [Feosol] 325 MG) PO SCH (10:00)
[2018-04-21] MEDS: Calcium-Vit D 250 mg-125 Units Tab UD PO SCH ×3 (10:51→17:38)
[2018-04-21] MEDS: Metoprolol Succinate 100 mg XL Tab PO SCH (10:52)
[2018-04-21] MEDS: Multivitamin Therapeutic Tab PO SCH (10:52)
[2018-04-21] MEDS ORDERED: Divalproex 250 mg DR (BID formulation) PO SCH (10:58)
[2018-04-21] MEDS: Divalproex 250 mg DR (BID formulation) PO SCH (11:12)
[2018-04-21] MEDS ORDERED: Divalproex 250 mg DR (BID formulation) PO ONE (11:15)
[2018-04-21 12:54] LABS: FOLATE 4.6 ng/mL
--- NOTE | 2018-04-21 16:18 | CARD ---
APPROVED REPORT Date of service: 04/21/2018 EXAM: Two-dimensional and M-mode echocardiogram with Doppler and color Doppler. INDICATION Chest Pain 2D DIMENSIONS IVSd1.2 (0.7-1.1cm)LVDd4.6 (3.9-5.9cm) PWd1.6 (0.7-1.1cm)LVDs3.1 (2.5-4.0cm) FS (%) 32.3 %LVEF (%)60.6 (>50%) M-Mode DIMENSIONS Aortic Root3.70 (2.2-3.7cm)Aortic Cusp Exc.2.10 (1.5-2.0cm) Aortic Valve AoV Peak Hwxhehnu014.0cm/Corina Peak GR.5mmHg Mitral Valve MV E Jvgomxch06.4cm/sMV A Uyjyxtfv36.7cm/sE/A ratio0.6 TDI Lateral E' Peak V6.82cm/sMedial E' Peak V5.75cm/sE/Lateral E'8.1 E/Medial E'9.6 Pulmonary Valve PV Peak Hpvdtgad81.0cm/sPV Peak Grad.2mmHg Tricuspid Valve TR Peak [id number]/sRAP [id number] Peak Gr.17mmHg [id number] LEFT VENTRICLE The left ventricle is normal size. There is mild concentric left ventricular hypertrophy. The left ventricular function is normal.-EF-55-60% There is normal LV segmental wall motion. Transmitral Doppler flow pattern is Grade III-reversible restrictive diastolic dysfunction. No left ventricle thrombus noted on this study. There is no ventricular septal defect visualized. There is no left ventricular aneurysm. There is no mass noted in the left ventricle. RIGHT VENTRICLE The right ventricle is normal size. There is normal right ventricular wall thickness. The right ventricular systolic function is normal. ATRIA The left atrium size is normal. The right atrium size is normal. The interatrial septum is intact with no evidence for an atrial septal defect. AORTIC VALVE The aortic valve is thickened but opens well. There is trace aortic regurgitation. There is no aortic valvular stenosis. There is no aortic valvular vegetation. MITRAL VALVE The mitral valve is thickened but opens well. Mitral regurgitation is trace. There is no mitral valve stenosis. There is no evidence of mitral valve prolapse. TRICUSPID VALVE The tricuspid valve is normal in structure. There is trace to mild tricuspid regurgitation.RVSP-27 mmof hg. There is no tricuspid valve stenosis. There is no tricuspid valve prolapse or vegetation. PULMONIC VALVE The pulmonary valve is normal in structure. There is no pulmonic valvular regurgitation. There is no pulmonic valvular stenosis. GREAT VESSELS The aortic root is normal in size. The ascending aorta is normal in size. The pulmonary artery is normal. The IVC is normal in size and collapses >50% with inspiration. PERICARDIAL EFFUSION There is no pleural effusion. There is no pericardial effusion. <Conclusion> Normal chamber size. LVH, EF-60-65% There is trace aortic regurgitation. Mitral regurgitation is trace. There is trace to mild tricuspid regurgitation.RVSP-27 mmof hg. There is no pericardial effusion. The IVC is normal in size and collapses >50% with inspiration. No Vegetation or thrombus noted.
--- NOTE | 2018-04-21 20:17 | CON ---
DATE: 04/21/2018 PULMONARY CONSULT REFERRING PHYSICIAN: Leah Sweet MD REASON FOR CONSULTATION: Cough, shortness of breath, and pleuritic pain. HISTORY OF PRESENT ILLNESS: This is a 57 years old obese male with past medical history significant for hypertension, diabetes, history of stroke, has coronary artery disease, history of coronary stent with residual weakness of right lower extremity, brought into emergency room with chest pain, cough, and shortness of breath. According to the patient, he had been having URI symptoms for few days. No hemoptysis, emesis, or hematuria. No diarrhea reported. PAST MEDICAL HISTORY: History of cholecystitis, GERD, history of gastric sleeve in the past. ALLERGIES: NONE KNOWN. SOCIAL HISTORY: He is a [facility] resident. No history of smoking or alcohol use. FAMILY HISTORY: No significant cardiopulmonary disease reported. MEDICATIONS: He is on DuoNeb every 6 hours p.r.n., Colace 200 mg at bedtime, Cozaar 100 mg daily, vitamin D 50,000 units weekly, Ecotrin 81 mg daily, ferrous sulfate 324 mg daily, insulin coverage. He is on hydrochlorothiazide 25 mg daily, Lasix 20 mg daily, Levemir 20 units subcu before breakfast and at bedtime, Lipitor 10 mg daily, Norvasc 10 mg daily, also on calcium plus vitamin D two tablets three times a day, Pepcid 10 mg twice a day, Plavix 75 mg daily, multivitamins daily, Toprol XL 100 mg daily. REVIEW OF SYSTEMS: No headache. Has some rhinitis, cough, shortness of breath, pleuritic pain. No nausea, no vomiting, no abdominal pain. Has a right leg swelling. PHYSICAL EXAMINATION: GENERAL: Lying in the bed, in no acute distress. VITAL SIGNS: Temperature is 99, heart rate is 81, respiratory rate is 20, blood pressure 108/68, pulse ox 94% on room air. HEENT: Moist mucous membrane. Crowded airway. Mallampati score is 4. NECK: Supple. No JVD. LUNGS: A fair airflow with rhonchi. HEART: S1 and S2. ABDOMEN: Soft, nontender, and nondistended. EXTREMITIES: Have right leg nonpitting edema. NEUROLOGIC: Awake, alert, and follows simple commands. LABORATORY DATA: Shows hemoglobin 11.6, hematocrit 37.1, WBC 4.5, and platelets 216. Sodium 137, potassium 4, chloride 102, bicarbonate 26. BUN 19, creatinine 1.6. Glucose 201. Calcium 9.4. Iron is 43, TIBC 246. Cholesterol 133. TSH 2.94. Had chest x-ray done in the ER shows no infiltrate or effusion. Had echocardiogram done today, which shows right ventricle systolic pressure is 27. Has some LVH with LV ejection fraction 60% to 65%. IMPRESSION AND PLAN: Probably have acute bronchitis, rule out chronic obstructive lung disease, diabetes, coronary artery disease, history of coronary stent, hypertension, history of cerebrovascular accident, probably have sleep apnea syndrome, history of gastric sleeve in the remote past. Spoke to nursing staff. We will continue inhaled bronchodilator. We will add doxycycline 100 mg twice a day. May add prednisone 20 mg daily. We will taper off in the next 4 to 5 days. Cardiac workup. Consider attended sleep study upon discharge as outpatient. PFT as outpatient. Thank you and we will follow with you. Heber Cunha MD
[2018-04-21] MEDS ORDERED: INSULIN GLARGINE RECOMBINA 20 UNIT SC SCH (22:00)
[2018-04-21] MEDS ORDERED: guaiFENesin 100 mg/5 ml Syrup UD PO STA (22:28)
--- NOTE | 2018-04-22 04:18 | PN ---
DATE: 04/21/2018 SUBJECTIVE: The patient is a 57-year-old male. The patient was seen and examined on the bedside on 04/21/2018. Coughing with shortness of breath and having chest pain, looks like pleuritic chest pain. No fever, no chills. No headache, no dizziness. PHYSICAL EXAMINATION VITAL SIGNS: Temperature 99, heart rate 81, respiratory rate 20, blood pressure 108/68, pulse oximetry 94% on room air. HEENT: Head: Normocephalic, atraumatic. Eyes: PERRLA. Extraocular muscles intact. Conjunctivae clear. Nose patent. Mucous membrane moist. NECK: Supple. No carotid bruit. No JVD or thyromegaly. CHEST: Bilaterally symmetrical. HEART: S1 and S2 positive. LUNGS: Fair airflow with rhonchi. ABDOMEN: Soft, nontender. No organomegaly. EXTREMITIES: Have right leg nonpitting edema. NEUROLOGICAL: Awake and alert. Follows simple commands. LABORATORY DATA: Hemoglobin 11.6, hematocrit 37.1, white blood cell 4.1, platelets 211. Sodium 137, potassium 4, BUN 19, creatinine 1.6. TSH 2.94. ASSESSMENT AND PLAN: Mr. David Gimenez is a 57-year-old male, resident of [facility], came with the chest pain, probably has acute bronchitis, rule out chronic obstructive lung disease, diabetes mellitus, coronary artery disease, history of coronary stents, hypertension, cerebrovascular accident, sleep apnea syndrome, has a gastric sleeve in the remote past. Continue inhaled bronchodilators. Dr. Cunha added doxycycline and added prednisone also with the tapering dose. Cardiac workup in the process. Discussion done with nurse practitioner, An. Seen by the telegraph and teletype operator also. The patient has history of coronary artery disease. Troponins are negative x3. Initial EKG shows sinus rhythm with [address] changes. Chest x-ray shows no acute changes. Echo done, results are pending. Continue Cozaar, HCTZ, Lasix, Norvasc, aspirin, Lipitor, Plavix. Gastrointestinal and deep venous thrombosis prophylaxes. Repeat labs. We will follow up. Leah Sweet MD
[2018-04-22 06:43] VITALS: O2SAT 97
[2018-04-22] MEDS: Insulin Lispro 1 UNITS/0.01 ML SC SCH ×2 (08:39→12:15)
[2018-04-22] MEDS: Insulin Reg-LOW-Coverage SC SCH ×2 (08:41→12:15)
[2018-04-22] MEDS: Insulin Detemir 100 units/ml Vial (Levemir) SC SCH (08:42)
[2018-04-22] MEDS: Calcium-Vit D 250 mg-125 Units Tab UD PO SCH ×2 (09:11→15:31)
[2018-04-22] MEDS: Metoprolol Succinate 100 mg XL Tab PO SCH (09:12)
[2018-04-22] MEDS: Multivitamin Therapeutic Tab PO SCH (09:12)
[2018-04-22] MEDS ORDERED: Ergocalciferol 50,000 Intl Units Cap PO SCH (10:00)
[2018-04-22 12:09] VITALS: BP 143/72; PULSE 79; RESP 20; TEMP 98.6
[2018-04-29] MEDS ORDERED: Ergocalciferol 50,000 Intl Units Cap PO SCH (10:00)
== END 2018-04-22 16:48 | DRG 202 ==
LOC: ED 11:59 → ERH 14:51 → 2RNO 19:01
PROVIDERS: ADMIT Internal Medicine; ATTEND Internal Medicine
DX: J20.9 Acute bronchitis, unspecified (principal); Z68.43 Body mass index [BMI] 50.0-59.9, adult; I69.351 Hemiplegia and hemiparesis following cerebral infarction affecting right dominant side; I25.10 Atherosclerotic heart disease of native coronary artery without angina pectoris; I10 Essential (primary) hypertension; E11.51 Type 2 diabetes mellitus with diabetic peripheral angiopathy without gangrene; G47.30 Sleep apnea, unspecified; K21.9 Gastro-esophageal reflux disease without esophagitis; E66.01 Morbid (severe) obesity due to excess calories; Z98.84 Bariatric surgery status; Z91.19 Patient's noncompliance with other medical treatment and regimen; Z94.7 Corneal transplant status; Z79.4 Long term (current) use of insulin; Z79.82 Long term (current) use of aspirin; Z86.010 Personal history of colon polyps; Z95.5 Presence of coronary angioplasty implant and graft